=== PATIENT | female | born 1960 | race Caucasian/White ===

== ENCOUNTER → 2020-11-24 | Outpatient (CLI) | payer BC ==
--- NOTE | 2020-11-24 15:57 | XR ---
EXAMINATION TYPE: XR chest 2V DATE OF EXAM: 11/24/2020 COMPARISON: NONE HISTORY: Covid positive, cough and shortness of breath TECHNIQUE: Frontal and lateral views of the chest are obtained. FINDINGS: There is no focal air space opacity, pleural effusion, or pneumothorax seen. The cardiac silhouette size is within normal limits. There are prominent lung volume suggesting underlying COPD. The aorta is dense. The osseous structures are intact. IMPRESSION: No acute cardiopulmonary process.
== END | disposition home or self-care (01) ==
LOC: LABWHC1 13:09
PROVIDERS: ATTEND Internal Medicine
DX: R05 Cough (principal); R06.02 Shortness of breath
CPT/HCPCS: 71046; U0003; C9803; U0005

== ENCOUNTER → 2021-01-28 | Outpatient (CLI) | payer BC ==
--- NOTE | 2021-01-28 16:34 | CT ---
EXAMINATION TYPE: CT angio chest DATE OF EXAM: 01/28/2021 COMPARISON: None HISTORY: 60-year-old female SOB x 2 months TECHNIQUE: Contiguous axial scanning of the chest performed with IV Contrast, patient injected with 8 0 mL of Isovue 370. Coronal/sagittal MIP reconstructions performed. CT DLP: 375.8 mGycm Automated exposure control for dose reduction was used. FINDINGS: Heart normal size without pericardial effusion. LAD coronary artery calcifications are present. Aorta normal caliber with conventional arch vessel branching anatomy. Moderate atherosclerotic narrow ing at the origin of the brachiocephalic artery, axial image 44. Borderline optimal opacification of the pulmonary arterial system. No pulmonary embolus is identified . Prominent right hilar lymph node measures 1.8 x 1.1 cm and left hilar lymph node measures 1.2 x 0.9 c m, likely reactive/post inflammatory. Otherwise, no thoracic lymphadenopathy. Biapical pleural-parenchymal scarring. Some upper lung paraseptal emphysema. Mild centrilobular emphy sema with hyperinflation and diffuse bronchial wall thickening throughout. Some patchy subpleural opacity at the periphery of the right base. Additional patchy opacity inferior lingula. There is no pleural effusion. Visualized upper abdomen shows an indeterminate right adrenal nodule measuring 1.1 cm that can be yury ssessed at 6 months. Bones: No osseous destructive process. IMPRESSION: 1. BORDERLINE OPTIMAL OPACIFICATION OF THE PULMONARY NODULE SYSTEM. NO DEFINITE PULMONARY EMBOLUS. 2. COPD WITH MILD TO MODERATE EMPHYSEMA. EITHER SUPERIMPOSED ACUTE BRONCHITIS OR A PROMINENT COMPONEN T OF CHRONIC BRONCHITIS. 3. PATCHY OPACITY INFERIOR LINGULA AND ALSO IN THE PERIPHERY OF THE RIGHT BASE. THESE FINDINGS COULD REPRESENT AREAS OF ATELECTASIS OR DEVELOPING INFILTRATE/PNEUMONIA. CORRELATE WITH PATIENT'S SYMPTOMS. 4. CONSIDER A 3-6 MONTH FOLLOW-UP CT TO REASSESS GIVEN BORDERLINE TO MILDLY ENLARGED HILAR LYMPH NODE S, PROBABLY REACTIVE/POST INFLAMMATORY.
== END ==
LOC: RADCTMAIN 15:28
PROVIDERS: ATTEND Nurse Practitioner Adult Health
DX: J43.9 Emphysema, unspecified (principal); R91.8 Other nonspecific abnormal finding of lung field
CPT/HCPCS: 71275; Q9967